=== PATIENT | female | born 1990 | race Caucasian/White ===

== ENCOUNTER 2017-09-30 10:31 | Emergency (ER) | payer OTHER ==
[~2017-09-30] VITALS: Ht 152.4 cm; Wt 87.5 kg
[~2017-09-30 10:31] MED LIST: ACYCLOVIR PO; ENOX40IN SQ; OXYC-57 PO; PANT40TA PO; PRENTAB26 PO
[2017-09-30 10:35] VITALS: TEMP 37; Ht 152.4 cm; Wt 87.5 kg
[2017-09-30] MEDS ORDERED: OXYCODONE HCL IR 5 MG TAB (IMMEDIATE RELEASE) PO STA (11:33)
[2017-09-30] MEDS ORDERED: IBUPROFEN 600 MG TAB PO STA (11:33)
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
--- NOTE | 2017-09-30 12:11 | DIAGNOSTIC IMAGING REPORT ---
C-SPINE ROUTINE 4 OR 5 VIEWS CLINICAL HISTORY: Neck pain status post trauma COMPARISON STUDY: No previous studies for comparison. FINDINGS: The prevertebral soft tissues are normal. No fractures or subluxations are visualized. IMPRESSION: No fractures or subluxations identified. Electronically signed by: Vaughn Hernandez M.D. 09/30/2017 12:10 PM Dictated Date/Time: 09/30/2017 12:10 PM
[2017-09-30] MEDS ORDERED: OXYC-57 PO (12:34)
[2017-09-30 12:50] VITALS: BP 141/83; PULSE 67; O2SAT 100
== END 2017-09-30 12:51 | disposition home or self-care (01) ==
LOC: C.EDB 10:34 → C.EDA 12:51
DX: M54.2 Cervicalgia (principal); V89.9XXA Person injured in unspecified vehicle accident, initial encounter; Z83.3 Family history of diabetes mellitus; Z80.9 Family history of malignant neoplasm, unspecified; Z82.49 Family history of ischemic heart disease and other diseases of the circulatory system; Z84.1 Family history of disorders of kidney and ureter

== ENCOUNTER 2019-07-10 18:31 | Observation (INO) ==
[2019-07-10] MEDS ORDERED: DEXAMETHASONE SOD INJ 4 MG/ML VIAL IV STA (22:26)
[2019-07-10] MEDS ORDERED: SODIUM CHLORIDE 0.9% 1000ML 1,000 ML IV ONE (22:26)
[2019-07-10] MEDS ORDERED: ACETAMINOPHEN 1,000 MG/100 ML VIAL IV STA (22:26)
[2019-07-10] MEDS ORDERED: PROCHLORPERAZINE 2 ML IV ONE (22:26)
[2019-07-10] MEDS ORDERED: DiphenhydrAMINE HCL 50 MG/ML VIAL IV STA (22:26)
--- NOTE | 2019-07-10 23:01 | XRay Report ---
SINGLE VIEW CHEST CLINICAL HISTORY: Atypical chest pain. FINDINGS: An AP, portable, upright chest radiograph is compared to study dated 04/08/2015. The cardiom ediastinal silhouette is unremarkable. The lungs and pleural spaces are clear. No pneumothorax is see n. The bony thorax is grossly intact. IMPRESSION: No active disease in the chest. Electronically signed by: Sebastian Oliveros M.D. 07/10/2019 11:00 PM
[2019-07-10 23:16] LABS: Eosinophils # (auto) 0.01 K/uL (0-0.5); Eosinophils % (auto) 0.1 %; Hematocrit (blood only) 45.4 % (37-47); Hemoglobin 15.7 g/dL (12.0-16.0); Immature Granulocytes # (auto) 0.01 K/uL (0.00-0.02); Immature Granulocytes % (auto) 0.1 %; Lymphocytes # (auto) 0.57 K/uL (1.2-3.4); Lymphocytes % (auto) 7.9 %; Mean Corpuscular Hemoglobin 29.8 pg (25-34); Mean Corpuscular Hgb Conc 34.6 g/dL (32-36); Mean Corpuscular Volume 86.1 fL (80-100); Mean Platelet Volume 10.5 fL (7.4-10.4); Monocytes # (auto) 0.46 K/uL (0.11-0.59); Monocytes % (auto) 6.4 %; Neutrophils # (auto) 6.12 K/uL (1.4-6.5); Neutrophils % (auto) 85.5 %; Platelet Count 135 K/uL (130-400); RDW Coefficient of Variation 12.8 % (11.5-14.5); RDW Standard Deviation 40.7 fL (36.4-46.3); Red Blood Count 5.27 M/uL (4.2-5.4); White Blood Count 7.17 K/uL (4.8-10.8)
[2019-07-10] MEDS ORDERED: DEXAMETHASONE **PF** INJ 10 MG/ML VIAL ONE (23:20)
[2019-07-10 23:26] LABS: Prothrombin Time 10.3 Seconds (9.0-12.0)
[2019-07-10 23:34] LABS: BUN Creatinine Ratio 15.9 (10-20); C Reactive Protein 1.99 mg/dl (0-0.29); Calcium 8.4 mg/dl (8.5-10.1); Creatinine Clr Calc Pharmacy 106.6 ml/min; Est GFR (African American) 112.9; Est GFR (Non-African American) 97.4; Magnesium 1.9 mg/dl (1.8-2.4); Potassium 3.6 mmol/L (3.5-5.1)
[2019-07-10 23:43] LABS: Albumin Globulin Ratio 1.1 (0.9-2); Bilirubin Direct 0.2 mg/dl (0-0.2); Bilirubin,Total 0.5 mg/dl (0.2-1); Globulin 3.5 gm/dl (2.5-4.0); Phosphorus 3.2 mg/dl (2.5-4.9); Thyroid Stimulating Hormone 3.2 uIu/ml (0.300-4.500); Total Protein 7.5 gm/dl (6.4-8.2)
[2019-07-10 23:48] LABS: Appearance Urine Clear (Clear); Bilirubin Urine Negative (Negative); Blood Urine Negative (Negative); Color Urine Yellow; Glucose Urine UA Negative (Negative); Ketones Urine 1+ (Negative); Leukocyte Esterase Urine Negative (Negative); Nitrite Urine Negative (Negative); Protein Urine Negative (Negative); Specific Gravity Urine 1.026 (1.000-1.030); Urobilinogen Urine Negative (Negative); pH Urine 5.5 (4.5-7.5)
[2019-07-10 23:51] LABS: RBC Morphology Unremarkable
[2019-07-11 00:02] LABS: Pregnancy Test, Serum Negative (Negative)
[2019-07-11 00:04] LABS: Lyme Ab IgG w/WB Rflx Negative (Negative); Lyme Ab IgM w/WB Rflx Negative (Negative)
[2019-07-11] MEDS ORDERED: LIDOCAINE HCL 1% 20 ML VIAL ONE (01:30)
--- NOTE | 2019-07-11 02:28 | Emergency Department Note ---
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 She has a hx of gestational diabetes, es ophagitis, DVT (in her left arm) during and is no longer on blood thinners. She reports her headache is constant and has gotten worse since the onset. She states she saw Dr. Subramanian, [facility] resident earlier today who referred her to the ED. She notes she did not take any of her medications today as she is extremely nauseous. She has vomiting and has double vision but denies any fevers, chills, cough, congestion, being on contraception. The patient also notes that her hair has been falling out and she has been bruising a lot lately. 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 She reports she was tested for Lyme's and West Nile but both were negative. Home Medications Home Medications Medication Instructions Recorded Confirmed Type pantoprazole 40 mg PO QAM 06/21/19 07/10/19 History valacyclovir 1,000 mg PO Q12H 06/21/19 07/10/19 History betamethasone dipropionate 1 applic TOPICAL BID 07/10/19 07/10/19 History cetirizine 10 mg PO DAILY PRN 07/10/19 07/10/19 History hydroxyzine HCl 25 mg PO BID PRN 07/10/19 07/10/19 History prednisone 40 mg PO DAILY 07/10/19 07/10/19 History Allergies Allergy/AdvReac Type Severity Reaction Status Date / Time clindamycin Allergy Intermediate Hives Verified 07/10/19 21:48 Past Med/Surg History Medical History History of DVT (deep vein thrombosis) in setting of PICC line Contact dermatitis H/O complications due to general anesthesia Herpes simplex Hidradenitis suppurativa Surgical History History of knee surgery History of surgery on wrist S/P section Status post laparoscopic appendectomy Family History Other Diabetes Hypertension Social History Preferred Language: Congolese Communication Ability: Effective 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 and A total of 10 systems reviewed and were otherwise negative Physical Exam Vital Signs Vital Signs - 24 hr 07/10/19 18:53 07/10/19 23:31 07/11/19 01:12 Temperature 37.1 C Temperature Source Oral Sepsis Recent Fever Within 48 Hours No Sepsis Action Taken by Nursing No Action Required Pulse Rate 83 Pulse Rate [Right Finger] 82 81 Pulse Rhythm Regular Pulse Rhythm [Right Finger] Regular Regular Pulse Strength Normal Pulse Strength [Right Finger] Normal Normal Respiratory Rate 20 20 20 Respiratory Effort / Characteristics Non-Labored Non-Labored Spontaneous Non-Labored Spontaneous Respiratory Depth Normal Normal Normal Respiratory Pattern Regular Blood Pressure 128/83 Blood Pressure [Right Arm] 131/71 123/67 Blood Pressure Mean 98 Blood Pressure Mean [Right Arm] 91 85 Blood Pressure Position Sitting Pulse Oximetry 99 98 95 Oxygen Delivery Method Room Air Room Air Room Air GENERAL: Awake, alert, uncomfortable-appearing, in no distress. BMI is 41.8 HENT: Normocephalic, atraumatic. Oropharynx with dry mucous membranes and other casanova unremarkable. EYES: Normal conjunctiva. Sclera non-icteric. EOMI. No nystamgus. PEARRL. NECK: Supple. No nuchal rigidity. FROM. No JVD. RESPIRATORY: CTAB. CARDIAC: Regular rate, normal rhythm. Extremities warm and well perfused. Pulses equal. ABDOMEN: Soft, non-distended. No tenderness to palpation. No rebound or guarding. No masses. RECTAL: Deferred. MUSCULOSKELETAL: Chest examination reveals no tenderness. The back is symmetrical on inspection without obvious abnormality. There is no CVA tenderness to palpation. No joint edema. LOWER EXTREMITIES: Calves are equal size bilaterally and non-tender. No edema. No discoloration. NEURO: Normal sensorium. No sensory or motor deficits noted. Cerebellar function intact, including finger to nose, alternating palms, heel to contreras. 5/5 strength and SILT x4 extremities. SKIN: No rash or jaundice noted. Procedures Lumbar Puncture Time Out Performed: Yes Patient Position: right lateral decubitus Skin Prep: 0.5% Chlorhexidine/Alcohol Local Anesthetic: lidocaine 1% Amount of anesthesia used (mL): 10 Spinal Needle Gauge: 22G Interspace Used: L4-L5 Opening Pressure (cmH20): 18 Fluid Initially Obtained: clear Complications: none Additional Comments: 8cc of clear fluid removed. Course 2215: Past medical records reviewed. The patient was evaluated in room B4. A complete history and physical exam was performed. 0033: Discussed the patient's case with Dr. Perez, [facility] Hospitalist. The pat ient will be evaluated for further management by her. Administered Medications Discontinued Medications Dexamethasone (Decadron) 10 mg IV NOW STA Stop: 07/10/19 22:27 Last Admin: 07/10/19 23:27 Dose: Not Given Documented by: [id number] Dexamethasone Sodium Phosphate (Decadron Pf) Confirm Administered Dose 10 mg .ROUTE .STK-MED ONE Stop: 07/10/19 23:21 Last Admin: 07/10/19 23:27 Dose: 10 mg Documented by: [id number] Diphenhydramine HCl (Benadryl) 25 mg IV NOW STA Stop: 07/10/19 22:27 Last Admin: 07/10/19 23:26 Dose: 25 mg Documented by: [id number] Acetaminophen (Ofirmev) 1,000 mg in 100 mls @ 400 mls/hr IV NOW STA Stop: 07/10/19 22:40 Last Infusion: 07/11/19 00:05 Dose: 0 mls/hr Documented by: [id number] Admin: 07/10/19 23:27 Dose: 400 mls/hr Documented by: [id number] Prochlorperazine (Compazine) 2 mls @ 1 mls/min IV ONE ONE Stop: 07/10/19 22:27 Last Admin: 07/10/19 23:27 Dose: 1 mls/min Documented by: [id number] Sodium Chloride (Nss 1000ml) 1,000 mls @ 999 mls/hr IV .Q1H1M ONE Stop: 07/10/19 23:26 Last Infusion: 07/11/19 02:18 Dose: 0 mls/hr Documented by: [id number] Admin: 07/10/19 23:27 Dose: 999 mls/hr Documented by: [id number] Lidocaine HCl (Xylocaine 1% (Local)) Confirm Administered Dose 20 ml .ROUTE .STK-MED ONE Stop: 07/11/19 01:31 Last Admin: 07/11/19 02:17 Dose: 20 ml Documented by: [id number] Ondansetron HCl (Zofran) Confirm Administered Dose 4 mg .ROUTE .STK-MED ONE Stop: 07/11/19 03:50 Last Admin: 07/11/19 03:52 Dose: 4 mg Documented by: [id number] Medical Decision Making Differential Diagnosis Differential diagnosis: Etiologies such as migraine headache, meningitis, sinusitis, CO exposure, ICH, SAH, infection, tumor, headache, sinus thrombosis, arterial dissection, as well as others were entertained. Medical Records Attestation: I reviewed the patient's medical records. She was seen by Dr. Cruz on 06/21 for a headache and pain on her right leg. She had a CT of her head and a follow up MRI. HEAD CT NONCONTRAST CT DOSE: 537.48 mGy.cm HISTORY: headache TECHNIQUE: Multiaxial CT images of the head were performed without the use of intravenous contrast. Automated exposure control was utilized for this study. A dose lowering technique was utilized adhering to the principles of ALARA. Comparison: None. Findings: The paranasal sinuses and mastoid air cells are clear. The calvarium and skull base are intact. There is no hematoma, midline shift, or acute infarct. Question of 8 mm subependymal nodule within the atrium of the left lateral ventricle best seen on image 16. There is CSF prominence posterior to the pineal gland measuring 2 cm which could represent an arachnoid or pineal gland cyst. There is also a small linear focus of CSF density within the left occipital lobe best seen image 14. This could represent a migration anomaly or small focus of encephalomalacia. This is likely developmental. Impression: 1. No acute intracranial abnormality. 2. Possible 8 mm subependymal nodule within the atrium of the left lateral ventricle. 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 3. Linear CSF density within the left occipital lobe which could represent a small focus of encephalomalacia from an old insult or migration anomaly. 4. Follow-up brain MRI recommended for further evaluation of the suspected congenital/developmental abnormalities. Electronically signed by: Tyler Grover M.D. 06/21/2019 2:24 PM ADDENDUM Addendum: Voice recognition error. Corrected impression #3: 3. There are NO lesions suspicious for neoplasm. Electronically signed by: Vaughn Hernandez M.D. 07/05/2019 2:56 PM ADDENDUM END MRI OF THE BRAIN WITHOUT AND WITH IV CONTRAST CLINICAL HISTORY: ACUTE INTRACTABLE [place] ABNORMAL CT SCAN. COMPARISON STUDY: Noncontrast head CT dated 06/21/2019 TECHNIQUE: MRI of the brain was performed from the vertex to the skull base utilizing various T1 and T2 weighted sequences. Following the IV administration of 9 mL of Gadavist contrast, additional enhanced images were obtained. FINDINGS: Sagittal T1, axial diffusion, proton density and T2 weighted axial, coronal FLAIR, and pre and post axial T1-weighted images were acquired. These were supplemented with post gadolinium coronal T1 weighted images. 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 In addition there is enlargement of the quadrigeminal plate cistern with a CSF cleft extending to the left medial temporal occipital region. Axial diffusion-weighted images reveal no evidence of acute or subacute infarction. There is no evidence of ventricular dilatation. Proton density T2-weighted and FLAIR images reveal scattered foci of increased T2 signal within the white matter, likely on a small vessel basis. There are no abnormal flow voids. There is no evidence of pathologic enhancement. IMPRESSION: 1. 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 2. No evidence of acute or subacute infarction 3. There are lesions suspicious for neoplasm. Electronically signed by: Vaughn Hernandez M.D. 07/03/2019 2:14 PM Home Medications Current Medication List: was personally reviewed by me Laboratory Data Attestation: I reviewed the patient's lab results. Result diagrams: 07/10/19 22:58 07/10/19 22:58 Lab Results 07/10/19 07/10/19 07/10/19 Range/Units 22:58 22:58 22:58 WBC 7.17 (4.8-10.8) K/uL RBC 5.27 (4.2-5.4) M/uL Hgb 15.7 (12.0-16.0) g/dL Hct 45.4 (37-47) % MCV 86.1 (80-100) fL MCH 29.8 (25-34) pg MCHC 34.6 (32-36) g/dL RDW Std Deviation 40.7 (36.4-46.3) fL RDW Coeff of Daniel 12.8 (11.5-14.5) % Plt Count 135 (130-400) K/uL MPV 10.5 H (7.4-10.4) fL Immature Gran % (Auto) 0.1 % Neut % (Auto) 85.5 % Lymph % (Auto) 7.9 % Titus % (Auto) 6.4 % Eos % (Auto) 0.1 % Baso % (Auto) 0.0 % Immature Gran # (Auto) 0.01 (0.00-0.02) K/uL Neut # (Auto) 6.12 (1.4-6.5) K/uL Lymph # (Auto) 0.57 L (1.2-3.4) K/uL Titus # (Auto) 0.46 (0.11-0.59) K/uL Eos # (Auto) 0.01 (0-0.5) K/uL Baso # (Auto) 0.00 (0-0.2) K/uL RBC Morphology Unremarkable ESR 14 (0-21) mm/hr PT (9.0-12.0) Seconds INR (0.9-1.1) Sodium (136-145) mmol/L Potassium (3.5-5.1) mmol/L Chloride (98-107) mmol/L Carbon Dioxide (21-32) mmol/L Anion Gap (3-11) BUN (7-18) mg/dl Creatinine (0.6-1.2) mg/dl Est Cr Clr Drug Dosing ml/min Est GFR ( Amer) Est GFR (Non-Af Amer) BUN/Creatinine Ratio (10-20) Glucose (70-99) mg/dl Calcium (8.5-10.1) mg/dl Phosphorus (2.5-4.9) mg/dl Magnesium (1.8-2.4) mg/dl Total Bilirubin (0.2-1) mg/dl Direct Bilirubin (0-0.2) mg/dl AST (15-37) U/L ALT (12-78) U/L Alkaline Phosphatase (45-117) U/L Total Creatine Kinase (26-192) U/L C-Reactive Protein (0-0.29) mg/dl Total Protein (6.4-8.2) gm/dl Albumin (3.4-5.0) gm/dl Globulin (2.5-4.0) gm/dl Albumin/Globulin Ratio (0.9-2) Lipase (73-393) U/L TSH (0.300-4.500) uIu/ml HCG, Qual Negative (Negative) Urine Color Urine Appearance (Clear) Urine pH (4.5-7.5) Ur Specific [place] (1.000-1.030) Urine Protein (Negative) Urine Glucose (UA) (Negative) Urine Ketones (Negative) Urine Blood (Negative) Urine Nitrite (Negative) Urine Bilirubin (Negative) Urine Urobilinogen (Negative) Ur Leukocyte Esterase (Negative) Lyme Disease IgG Ab Negative (Negative) Lyme Disease IgM Ab Negative (Negative) 07/10/19 07/10/19 07/10/19 Range/Units 22:58 22:58 23:35 WBC (4.8-10.8) K/uL RBC (4.2-5.4) M/uL Hgb (12.0-16.0) g/dL Hct (37-47) % MCV (80-100) fL MCH (25-34) pg MCHC (32-36) g/dL RDW Std Deviation (36.4-46.3) fL RDW Coeff of Daniel (11.5-14.5) % Plt Count (130-400) K/uL MPV (7.4-10.4) fL Immature Gran % (Auto) % Neut % (Auto) % Lymph % (Auto) % Titus % (Auto) % Eos % (Auto) % Baso % (Auto) % Immature Gran # (Auto) (0.00-0.02) K/uL Neut # (Auto) (1.4-6.5) K/uL Lymph # (Auto) (1.2-3.4) K/uL Titus # (Auto) (0.11-0.59) K/uL Eos # (Auto) (0-0.5) K/uL Baso # (Auto) (0-0.2) K/uL RBC Morphology ESR (0-21) mm/hr PT 10.3 (9.0-12.0) Seconds INR 1.0 (0.9-1.1) Sodium 136 (136-145) mmol/L Potassium 3.6 (3.5-5.1) mmol/L Chloride 105 (98-107) mmol/L Carbon Dioxide 24 (21-32) mmol/L Anion Gap 7.0 (3-11) BUN 13 (7-18) mg/dl Creatinine 0.82 (0.6-1.2) mg/dl Est Cr Clr Drug Dosing 106.6 ml/min Est GFR ( Amer) 112.9 Est GFR (Non-Af Amer) 97.4 BUN/Creatinine Ratio 15.9 (10-20) Glucose 87 (70-99) mg/dl Calcium 8.4 L (8.5-10.1) mg/dl Phosphorus 3.2 (2.5-4.9) mg/dl Magnesium 1.9 (1.8-2.4) mg/dl Total Bilirubin 0.5 (0.2-1) mg/dl Direct Bilirubin 0.2 (0-0.2) mg/dl AST 24 (15-37) U/L ALT 30 (12-78) U/L Alkaline Phosphatase 76 (45-117) U/L Total Creatine Kinase 58 (26-192) U/L C-Reactive Protein 1.99 H (0-0.29) mg/dl Total Protein 7.5 (6.4-8.2) gm/dl Albumin 4.0 (3.4-5.0) gm/dl Globulin 3.5 (2.5-4.0) gm/dl Albumin/Globulin Ratio 1.1 (0.9-2) Lipase 160 (73-393) U/L TSH 3.200 (0.300-4.500) uIu/ml HCG, Qual (Negative) Urine Color Yellow Urine Appearance Clear (Clear) Urine pH 5.5 (4.5-7.5) Ur Specific [place] 1.026 (1.000-1.030) Urine Protein Negative (Negative) Urine Glucose (UA) Negative (Negative) Urine Ketones 1+ H (Negative) Urine Blood Negative (Negative) Urine Nitrite Negative (Negative) Urine Bilirubin Negative (Negative) Urine Urobilinogen Negative (Negative) Ur Leukocyte Esterase Negative (Negative) Lyme Disease IgG Ab (Negative) Lyme Disease IgM Ab (Negative) Imaging Data Radiologist's Impression: Radiology results as stated below per my review and the radiologist's interpretation: SINGLE VIEW CHEST CLINICAL HISTORY: Atypical chest pain. FINDINGS: An AP, portable, upright chest radiograph is compared to study dated 04/08/2015. The cardiomediastinal silhouette is unremarkable. The lungs and ple ural spaces are clear. No pneumothorax is seen. The bony thorax is grossly intact. IMPRESSION: No active disease in the chest. Electronically signed by: Sebastian Oliveros M.D. 07/10/2019 11:00 PM ECG Data Attestation: I personally reviewed and interpreted this ECG as follows: Indication: vomiting Rate (beats per minute): 76 Rhythm: normal sinus Findings: + other (normal axis, QTC is 418); no acute ischemic change and no ectopy Blood Pressure Blood Pressure Findings: Elevated blood pressure Blood Pressure Disposition: further management by hospitalist OSVALDO Narrative The patient is a pleasant 20-year-old woman with a past medical history of DVT in the setting of no longer on anticoagulation who presents emergency department for admission for further evaluation and neurology consultation for 2 months of progressively worsening headache being managed by her PCPs office HPI. The patient did have a recent positive SHANTA and so there is some suspicion for rheumatologic process. Patient has been on prednisone for her symptoms. Of note, the patient had a CT scan in the emergency department which demonstrated likely congenital gyral thickening which was further clarified on recent outpatient MRI with and without contrast without acute findings otherwise. Arrival the patient is uncomfortable but no acute distress, afebrile stable vital signs. Her neck is supple with full range of motion without meningismus. No discrete temporal ttp. She is neurologically intact including cerebellar function intact including [id number], alternating palms, [id number]. 5/5 strength and SILT x 4 extremities. EOMI. No nystamgus. PEARRL. EKG without overt acute ischemia. Chest x-ray negative for acute process. WBC, H/H and platelets within normal limits. Chemistry without acidosis. ESR within normal limits at 14. CRP slightly elevated at 1.9. Electrolytes and LFTs otherwise unremarkable. UA with 1+ ketones consistent with the patient's clinically dry appearance. Lyme screen was negative. Given the patient recent had MRI of her brain no indication for repeat imaging at this time. However given the patient's consolation of symptoms lumbar puncture is reasonable to exclude idiopathic intracranial hypertension. Patient was consented and agreeable with this. LP performed per procedure note without complication with unremarkable cell counts. Viral studies ordered and pending. Case was discussed with Dr. Perez, [facility] hospitalist, who will evaluate the patient for admission. Impression & Plan Headache, Nausea, Change in vision, Dehydration, CRP elevated Discharge Plan Visit Data *Final* Discharge Date/Time: 07/11/19 03:20 Chief Complaint: Headache Stated Complaint: HEADACHE, REF'D BY BAROSEL ED Provider: Ihsan Long Discharge Problem: Headache, Nausea, Change in vision, Dehydration, CRP elevated Patient Disposition: Admitted As Inpatient Discharge Instructions Interventions: ED Discharge Assessment Last Done: 07/11/19 03:20 The scribe's documentation has been prepared under my direction and personally reviewed by me in its entirety. I confirm that the note above accurately reflects all work, treatment, procedures, and medical decision making performed by me.
[2019-07-11 02:41] LABS: CSF Count Tube # 3
--- NOTE | 2019-07-11 02:42 | History & Physical Report ---
Date of Service July 11, 2019 Assessment & Plan (1) Headache: Patient with new onset daily headache present for the last two months, associated with some visual changes/nausea/vomiting/photo and phonophobia. No fevers/chills/trauma/weight loss. Neurologically intact. LP performed in ER with subsequent improvement in symptoms. ?migraine vs psuedotumor cerebrii vs CVT. -Observation to medical floor -Check MRI, MRV -Neurology consultation appreciated. Per request from PCP -Pain and nausea control Present on Admission?: Yes History of Present Illness Chief Complaint: Headache Primary Care Provider: Hector Mendoza MD Cortney White is a 28yo C female presenting with headache. Patient reports no prior history of headache until 2 months ago when she developed a daily headache. Headache has been present every day for the last two months, constant, lasting all day. Occasionally wakes her from sleep. Pain is 10/10 at its worst, bifrontal, pounding/aching in quality. She has used Tylenol/Advil/Heat and ice with no relief. She has associated photophobia and phonophobia, occasional blurry vision and double vision and flashing lights in her visual field. Dizziness, nausea and vomiting. She reports that the headache has become progressively worse over the last two months. She has also been having more nausea and vomiting. Patient follows with Dr. Mendoza and Dr. Perez in the clinic. She has a complicated history of alopecia, skin rashes which have since resolved, leg swelling. Also with positive SHANTA on two separate occasions - 1:640 speckled and 1:640 nuclear. Additional workup included negative HIV, CMV and RPR. She was thought to possibly have lupus with cerebr itis as etiology of her headaches. She was started on Prednisone 40mg po daily. She reports worsening symptoms with taking the Prednisone. She denies history of trauma or concussion. 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 Denies fevers/chills. Headache is not made worse by straining or bending down. No seizures. No focal neurologic deficits. No recent illness or sick contacts. No history of tick or mosquito bites. She was experiencing episodes of epistaxis - was evaluated by ENT today and found to have nasal polyps. She is being scheduled for elective removal. Additionally, patient denies chest pain/palpitations/SOB/constipation/dysuria. Upon arrival to the ER this evening she was found to be afebrile, hemodynamically stable. In mild distress secondary to pain. She was administered Tylenol, Dexamethasone, Benadryl, Phenergan and NSS. LP was performed by Dr. Long with patient in the lateral recumbent position. He reported normal opening pressure, spinal fluid clear. Patient with no additional complaints at this time. She states that her headache is gone since the spinal tap. ER Course: Ofirme 1gm, Dexamethasone 10mg, Benadryl 25mg, Phenergan, NSS Allergies Allergy/AdvReac Type Severity Reaction Status Date / Time clindamycin Allergy Intermediate Hives Verified 07/10/19 21:48 Home Medications Home Medications Medication Instructions Recorded Confirmed Type pantoprazole 40 mg PO QAM 06/21/19 07/10/19 History valacyclovir 1,000 mg PO Q12H 06/21/19 07/10/19 History betamethasone dipropionate 1 applic TOPICAL BID 07/10/19 07/10/19 History cetirizine 10 mg PO DAILY PRN 07/10/19 07/10/19 History hydroxyzine HCl 25 mg PO BID PRN 07/10/19 07/10/19 History prednisone 40 mg PO DAILY 07/10/19 07/10/19 History Past Med/Surg History Medical History History of DVT (deep vein thrombosis) in setting of PICC line Contact dermatitis H/O complications due to general anesthesia Herpes simplex Hidradenitis suppurativa Surgical History History of knee surgery History of surgery on wrist S/P section Status post laparoscopic appendectomy Family History Other Diabetes Hypertension Social History Preferred Language: Occitan Feels Safe at Home: Yes Smoking Status: Never smoker Hx Alcohol Use: No Hx Substance Use: No Review of Systems Review of Systems: All systems reviewed & are unremarkable except as noted in HPI & below Physical Exam Physical Exam: General: patient resting comfortably, NAD, non-toxic in appearance, AA&O x 4 Skin: warm, dry, intact, no rashes or lesions HEENT: NC/AT, PERRL, EOMI, anicteric sclera, conjunctiva without injection, external ear normal to inspection and nontender, nares patent, moist mucus m embranes, dentition intact, no oropharyngeal lesions, neck supple, trachea midline, no LAD, no thyromegaly, no JVD Heart: +S1/S2, regular, no m/r/g Lungs: equal air entry bilaterally, no rales/rhonchi/wheezes Abd: +BS, soft, NT/ND, no masses/organomegaly/ascites Ext: warm, 2+ pulses in UE/LE bilaterally, no clubbing/cyanosis or edema Neuro: nonfocal, patient AA&O x 4, speech intact, no facial droop, moving all extremities on command with equal strength 5/5 Results & Data Vital Signs (Past 12 Hours) Vital Signs Temp Pulse Pulse Resp BP BP Pulse Ox 07/11/19 01:12 81 20 123/67 95 07/10/19 23:31 82 20 131/71 98 07/10/19 18:53 37.1 C 83 20 128/83 99 Laboratory Results Lab Results 07/10/19 07/10/19 07/10/19 Range/Units 22:58 22:58 22:58 WBC 7.17 (4.8-10.8) K/uL RBC 5.27 (4.2-5.4) M/uL Hgb 15.7 (12.0-16.0) g/dL Hct 45.4 (37-47) % MCV 86.1 (80-100) fL MCH 29.8 (25-34) pg MCHC 34.6 (32-36) g/dL RDW Std Deviation 40.7 (36.4-46.3) fL RDW Coeff of Daniel 12.8 (11.5-14.5) % Plt Count 135 (130-400) K/uL MPV 10.5 H (7.4-10.4) fL Immature Gran % (Auto) 0.1 % Neut % (Auto) 85.5 % Lymph % (Auto) 7.9 % [place] % (Auto) 6.4 % Eos % (Auto) 0.1 % Baso % (Auto) 0.0 % Immature Gran # (Auto) 0.01 (0.00-0.02) K/uL Neut # (Auto) 6.12 (1.4-6.5) K/uL Lymph # (Auto) 0.57 L (1.2-3.4) K/uL [place] # (Auto) 0.46 (0.11-0.59) K/uL Eos # (Auto) 0.01 (0-0.5) K/uL Baso # (Auto) 0.00 (0-0.2) K/uL RBC Morphology Unremarkable ESR 14 (0-21) mm/hr PT (9.0-12.0) Seconds INR (0.9-1.1) Sodium (136-145) mmol/L Potassium (3.5-5.1) mmol/L Chloride (98-107) mmol/L Carbon Dioxide (21-32) mmol/L Anion Gap (3-11) BUN (7-18) mg/dl Creatinine (0.6-1.2) mg/dl Est Cr Clr Drug Dosing ml/min Est GFR ( Amer) Est GFR (Non-Af Amer) BUN/Creatinine Ratio (10-20) Glucose (70-99) mg/dl Calcium (8.5-10.1) mg/dl Phosphorus (2.5-4.9) mg/dl Magnesium (1.8-2.4) mg/dl Total Bilirubin (0.2-1) mg/dl Direct Bilirubin (0-0.2) mg/dl AST (15-37) U/L ALT (12-78) U/L Alkaline Phosphatase (45-117) U/L Total Creatine Kinase (26-192) U/L C-Reactive Protein (0-0.29) mg/dl Total Protein (6.4-8.2) gm/dl Albumin (3.4-5.0) gm/dl Globulin (2.5-4.0) gm/dl Albumin/Globulin Ratio (0.9-2) Lipase (73-393) U/L TSH (0.300-4.500) uIu/ml HCG, Qual Negative (Negative) Urine Color Urine Appearance (Clear) Urine pH (4.5-7.5) Ur Specific [place] (1.000-1.030) Urine Protein (Negative) Urine Glucose (UA) (Negative) Urine Ketones (Negative) Urine Blood (Negative) Urine Nitrite (Negative) Urine Bilirubin (Negative) Urine Urobilinogen (Negative) Ur Leukocyte Esterase (Negative) CSF Appearance CSF Color Xanthrochromic CSF WBC (0-5) /uL CSF RBC (0-) /uL CSF Cell Count Tube # CSF Chemistry Tube # CSF Glucose (40-70) mg/dl CSF Total Protein (15-45) mg/dl Lyme Disease IgG Ab Negative (Negative) Lyme Disease IgM Ab Negative (Negative) 07/10/19 07/10/19 07/10/19 Range/Units 22:58 22:58 23:35 WBC (4.8-10.8) K/uL RBC (4.2-5.4) M/uL Hgb (12.0-16.0) g/dL Hct (37-47) % MCV (80-100) fL MCH (25-34) pg MCHC (32-36) g/dL RDW Std Deviation (36.4-46.3) fL RDW Coeff of Daniel (11.5-14.5) % Plt Count (130-400) K/uL MPV (7.4-10.4) fL Immature Gran % (Auto) % Neut % (Auto) % Lymph % (Auto) % [place] % (Auto) % Eos % (Auto) % Baso % (Auto) % Immature Gran # (Auto) (0.00-0.02) K/uL Neut # (Auto) (1.4-6.5) K/uL Lymph # (Auto) (1.2-3.4) K/uL [place] # (Auto) (0.11-0.59) K/uL Eos # (Auto) (0-0.5) K/uL Baso # (Auto) (0-0.2) K/uL RBC Morphology ESR (0-21) mm/hr PT 10.3 (9.0-12.0) Seconds INR 1.0 (0.9-1.1) Sodium 136 (136-145) mmol/L Potassium 3.6 (3.5-5.1) mmol/L Chloride 105 (98-107) mmol/L Carbon Dioxide 24 (21-32) mmol/L Anion Gap 7.0 (3-11) BUN 13 (7-18) mg/dl Creatinine 0.82 (0.6-1.2) mg/dl Est Cr Clr Drug Dosing 106.6 ml/min Est GFR ( Amer) 112.9 Est GFR (Non-Af Amer) 97.4 BUN/Creatinine Ratio 15.9 (10-20) Glucose 87 (70-99) mg/dl Calcium 8.4 L (8.5-10.1) mg/dl Phosphorus 3.2 (2.5-4.9) mg/dl Magnesium 1.9 (1.8-2.4) mg/dl Total Bilirubin 0.5 (0.2-1) mg/dl Direct Bilirubin 0.2 (0-0.2) mg/dl AST 24 (15-37) U/L ALT 30 (12-78) U/L Alkaline Phosphatase 76 (45-117) U/L Total Creatine Kinase 58 (26-192) U/L C-Reactive Protein 1.99 H (0-0.29) mg/dl Total Protein 7.5 (6.4-8.2) gm/dl Albumin 4.0 (3.4-5.0) gm/dl Globulin 3.5 (2.5-4.0) gm/dl Albumin/Globulin Ratio 1.1 (0.9-2) Lipase 160 (73-393) U/L TSH 3.200 (0.300-4.500) uIu/ml HCG, Qual (Negative) Urine Color Yellow Urine Appearance Clear (Clear) Urine pH 5.5 (4.5-7.5) Ur Specific [place] 1.026 (1.000-1.030) Urine Protein Negative (Negative) Urine Glucose (UA) Negative (Negative) Urine Ketones 1+ H (Negative) Urine Blood Negative (Negative) Urine Nitrite Negative (Negative) Urine Bilirubin Negative (Negative) Urine Urobilinogen Negative (Negative) Ur Leukocyte Esterase Negative (Negative) CSF Appearance CSF Color Xanthrochromic CSF WBC (0-5) /uL CSF RBC (0-) /uL CSF Cell Count Tube # CSF Chemistry Tube # CSF Glucose (40-70) mg/dl CSF Total Protein (15-45) mg/dl Lyme Disease IgG Ab (Negative) Lyme Disease IgM Ab (Negative) 07/11/19 07/11/19 Range/Units Unknown Unknown WBC (4.8-10.8) K/uL RBC (4.2-5.4) M/uL Hgb (12.0-16.0) g/dL Hct (37-47) % MCV (80-100) fL MCH (25-34) pg MCHC (32-36) g/dL RDW Std Deviation (36.4-46.3) fL RDW Coeff of Daniel (11.5-14.5) % Plt Count (130-400) K/uL MPV (7.4-10.4) fL Immature Gran % (Auto) % Neut % (Auto) % Lymph % (Auto) % [place] % (Auto) % Eos % (Auto) % Baso % (Auto) % Immature Gran # (Auto) (0.00-0.02) K/uL Neut # (Auto) (1.4-6.5) K/uL Lymph # (Auto) (1.2-3.4) K/uL [place] # (Auto) (0.11-0.59) K/uL Eos # (Auto) (0-0.5) K/uL Baso # (Auto) (0-0.2) K/uL RBC Morphology ESR (0-21) mm/hr PT (9.0-12.0) Seconds INR (0.9-1.1) Sodium (136-145) mmol/L Potassium (3.5-5.1) mmol/L Chloride (98-107) mmol/L Carbon Dioxide (21-32) mmol/L Anion Gap (3-11) BUN (7-18) mg/dl Creatinine (0.6-1.2) mg/dl Est Cr Clr Drug Dosing ml/min Est GFR ( Amer) Est GFR (Non-Af Amer) BUN/Creatinine Ratio (10-20) Glucose (70-99) mg/dl Calcium (8.5-10.1) mg/dl Phosphorus (2.5-4.9) mg/dl Magnesium (1.8-2.4) mg/dl Total Bilirubin (0.2-1) mg/dl Direct Bilirubin (0-0.2) mg/dl AST (15-37) U/L ALT (12-78) U/L Alkaline Phosphatase (45-117) U/L Total Creatine Kinase (26-192) U/L C-Reactive Protein (0-0.29) mg/dl Total Protein (6.4-8.2) gm/dl Albumin (3.4-5.0) gm/dl Globulin (2.5-4.0) gm/dl Albumin/Globulin Ratio (0.9-2) Lipase (73-393) U/L TSH (0.300-4.500) uIu/ml HCG, Qual (Negative) Urine Color Urine Appearance (Clear) Urine pH (4.5-7.5) Ur Specific [place] (1.000-1.030) Urine Protein (Negative) Urine Glucose (UA) (Negative) Urine Ketones (Negative) Urine Blood (Negative) Urine Nitrite (Negative) Urine Bilirubin (Negative) Urine Urobilinogen (Negative) Ur Leukocyte Esterase (Negative) CSF Appearance Clear CSF Color Colorless Xanthrochromic No xanthochromia CSF WBC 1 (0-5) /uL CSF RBC 0 (0-) /uL CSF Cell Count Tube # 3 CSF Chemistry Tube # 1 CSF Glucose 54 (40-70) mg/dl CSF Total Protein 36.6 (15-45) mg/dl Lyme Disease IgG Ab (Negative) Lyme Disease IgM Ab (Negative) Diagnostic Findings SINGLE VIEW CHEST CLINICAL HISTORY: Atypical chest pain. FINDINGS: An AP, portable, upright chest radiograph is compared to study dated 04/08/2015. The cardiomediastinal silhouette is unremarkable. The lungs and pleural spaces are clear. No pneumothorax is seen. The bony thorax is grossly intact. IMPRESSION: No active disease in the chest. Electronically signed by: Sebastian Oliveros M.D. 07/10/2019 11:00 PM Dictated: 07/10/192299 Transcribed: 07/10/192299 ECG Additional Comments: The study shows NSR at 76bpm, normal axis, FY=661, QRS=88, PLv=203, no acute ischemic changes Code Status & VTE Plan Code Status FULL VTE Prophylaxis Plan VTE Prophylaxis will be ordered: Yes PG Care Time/CCT Total # of Minutes Spent Total Time Spent with Patient: Total time spent is greater than 50% in coordination of care (as documented) at patient's floor/unit and/or counseling patient: (1) Headache Headache chronicity pattern: acute headache Headache type: unspecified Intractability: not intractable Qualified Code(s): R51 - Headache
[2019-07-11 02:49] LABS: Appearance CSF Clear; CSF Xanthrochromic No xanthochromia; Color CSF Colorless; Red Blood Cell CSF (A) 0 /uL (0-)
[2019-07-11 02:50] LABS: White Blood Cell CSF (A) 1 /uL (0-5)
[2019-07-11 02:51] LABS: Total Protein CSF 36.6 mg/dl (15-45)
[2019-07-11] MEDS ORDERED: CETIRIZINE HCL 10 MG TABLET PO PRN (03:35)
[2019-07-11] MEDS ORDERED: ONDANSETRON INJ 2 MG/ML 2 ML VIAL ONE (03:49)
--- NOTE | 2019-07-11 07:29 | Magnetic Resonance Report ---
MR venography head wo con CLINICAL HISTORY: Severe headache. COMPARISON STUDY: Head CT June 21, 2019. MRI of the brain July 03, 2019. TECHNIQUE: Utilizing a 1.5 Marisol magnet and dedicated coil with [id number] technique, unenhanced MRV of the head was obtained. FINDINGS: The superior sagittal sinus is patent. The straight sinus is patent. The bilateral transver se and sigmoid sinuses are patent. Visualized portions of the bilateral internal jugular veins are pa tent. No dural sinus thrombosis is identified. IMPRESSION: Unremarkable MRV. No dural sinus thrombosis. Electronically signed by: Nikko Alvarado M.D. 07/11/2019 7:28 AM
[2019-07-11] MEDS: VALACYCLOVIR HCL 500 MG TABLET PO SCH ×2 (08:55→20:02)
[2019-07-11] MEDS: PANTOprazole 40 MG TAB PO SCH (08:55)
[2019-07-11] MEDS: BETAMETHASONE DIP AUG 0.05% OINT 15 GM TUBE TOP SCH ×2 (08:56→20:01)
--- NOTE | 2019-07-11 10:11 | Neurology Consultation ---
Date of Consultation July 11, 2019 Assessment & Plan (1) Chronic migraine: This patient probably has a chronic migraine. She has an intact neurological examination and has had an unrevealing assessment including neuro imaging and lumbar puncture. She does have some incidental congenital /migrational defects on MRI that would not explain her persistent migrainous headache over the past 2 months. Her lumbar puncture revealed a normal opening pressure and was negative for any evidence of hemorrhage or infection. There is no supportive evidence of pseudotumor cerebri, subarachnoid hemorrhage, meningitis, or cerebral venous thrombosis. Lupus cerebritis is probably unlikely as well given her benign-appearing CSF and lack of focal enhancement on MRI. At this point I would suggest treatment per status migrainosus. Would consider giving additional IV corticosteroids such as methylprednisolone 500 mg IV x1. Would also give Depakote 500 mg IV x1. May continue with Zofran and Vistaril on an as-needed basis. However, would also consider giving additional Compazine IV if necessary to further address headache and nausea. Would also consider using sumatriptan and 6 mg subcutaneous injection for acute migraine treatment. I would also recommend starting topiramate 25 mg twice daily for migraine prevention. An outpatient rheumatology assessment has also been arranged for this patient which I think is reasonable in light of her history of elevated SHANTA and unexplained intermittent, migratory rash. History of Present Illness Reason for Consultation: headache Requesting Physician: Sudha Perez DO Attending Physician: Sudha Perez DO History of Present Illness The patient is a 28-year-old female with a chief complaint of headache. She complains of a fairly persistent headache that is been present for the past 2 months. Light and sounds tend to trigger her headache. She complains of some associated nausea, vomiting, and blurry vision. She has been using [id number] analgesics without relief. She denies a history of migraine. 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 She was given a prescription for prednisone recently by her PCP to potentially treat her refractory headaches. Past medical history also notable for a positive SHANTA with a high titer and an intermittent migratory erythematous papular rash affecting the limbs and trunk. She does not have a specific rheumatological diagnosis although has an appointment with a elevator constructor hydraulic at [facility] this coming November. 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 No evidence for an acute process. The patient appears to be clinically well although she complains of a persistent headache. She denies any associated weakness, difficulty with walking, or problems with coordination of the limbs. Patient denies a history of epilepsy or seizure disorder. Allergies Allergy/AdvReac Type Severity Reaction Status Date / Time clindamycin Allergy Intermediate Hives Verified 07/10/19 21:48 Home Medications Home Medications Medication Instructions Recorded Confirmed Type pantoprazole 40 mg PO QAM 06/21/19 07/10/19 History valacyclovir 1,000 mg PO Q12H 06/21/19 07/10/19 History betamethasone dipropionate 1 applic TOPICAL BID 07/10/19 07/10/19 History cetirizine 10 mg PO DAILY PRN 07/10/19 07/10/19 History hydroxyzine HCl 25 mg PO BID PRN 07/10/19 07/10/19 History prednisone 40 mg PO DAILY 07/10/19 07/10/19 History Patient History Medical History History of DVT (deep vein thrombosis) in setting of PICC line Contact dermatitis H/O complications due to general anesthesia Herpes simplex Hidradenitis suppurativa Surgical History History of knee surgery History of surgery on wrist S/P section Status post laparoscopic appendectomy Family History Other Diabetes Hypertension Social History Preferred Language: Maori Communication Ability: Effective Molecular Biology Professor Required: No Beliefs That Will Affect Care: None Current Living Situation: Spouse and Family Feels Safe at Home: Yes Smoking Status: Never smoker Second Hand Exposure: No ; Hx Alcohol Use: No Hx Substance Use: No Review of Systems Constitutional: no fever and no chills Eyes: as per Subjective / HPI, + photophobia and + seeing flashes; no blind spots and no eye pain Ear, Nose, Mouth, Throat: no ear pain, no tinnitus and no hearing loss Respiratory: no cough and no dyspnea Cardiovascular: no chest pain and no palpitations Gastrointestinal: as per Subjective / HPI, + nausea and + vomiting Genitourinary: no urinary incontinence Musculoskeletal: no neck pain and no myalgia Integumentary: as per Subjective / HPI and + alopecia Intermittent erythematous papular rash. None at this time, however. Neurologic: + headache(s); no unsteadiness, no localized weakness, no genera lized weakness, no loss of sensation, no tremor(s), no seizure-like activity, no syncope, no abnormal speech, no confusion and no memory loss Psychiatric: no depression and no anxiety Hematologic / Lymphatic: no easy bleeding and no easy bruising Physical Exam Physical Exam: The patient is a well-developed, well-nourished adult female. She is alert and fully oriented. Recent and remote memory intact. Patient is attentive with normal concentration. Patient exhibits a normal spontaneous speech pattern as well as an age-appropriate fund of knowledge and normal comp attention of vocabulary. Visual appiah full to confrontation. Visual acuity normal. Pupils equal round reactive to light and accommodation. Eye movements normal. There is no nystagmus, ptosis, or ophthalmoplegia. Facial sensation intact. There is no facial droop or weakness. Hearing intact. Palate elevates to midline. Shoulder shrug intact. Tongue protrudes to midline. Sensation intact to all modalities in all 4 limbs. Deep tendon reflexes intact and symmetrical for the arms and legs. Plantar responses downgoing bilaterally. There is no dysdiadochokinesia or dysmetria [id number] or [id number] bilaterally. Ophthalmoscopic examination reveals normal-appearing optic disks and posterior segments. No papilledema or hemorrhages. Carotid pulses normal bilaterally, no bruits to auscultation. Gait and station normal. Patient exhibits normal muscle strength and tone for all 4 limbs. No atrophy. No abnormal movements observed. Results & Data Vital Signs (Past 12 Hours) Vital Signs Temp Pulse Resp BP Pulse Ox 07/11/19 07:20 37.1 C 72 18 108/75 97 07/11/19 03:34 36.9 C 86 16 117/74 96 07/11/19 03:09 78 20 105/57 L 97 07/11/19 01:12 81 20 123/67 95 07/10/19 23:31 82 20 131/71 98 Laboratory Results WBC 7.17, hemoglobin 15.7, hematocrit 45.4, platelet count 135, sedimentation rate 14, sodium 136, potassium 3.6, BUN 13, creatinine 0.82, glucose 87, calcium 8.4, magnesium 1.9, AST 24, ALT 30, total CK 58, CRP 1.99, TSH 3.200 CSF clear, colorless, no xanthochromia, WBC 1, RBC 0, glucose 54, protein 36.6, Gram stain no WBCs, no organisms opening pressure 18 cm H2O Diagnostic Findings A CT of the head obtained on June 21, 2019 was negative for hemorrhage or acute process. 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 A follow-up MRI was recommended given the likely possibility of congenital/developmental abnormalities. I reviewed the images as well as the radiologist interpretation of this test. A contrast-enhanced brain MRI completed July 03, 2019 was negative for acute or subacute process. 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 There is enlargement of the quadrigeminal cistern with the CSF cleft extending into the medial temporal occipital region. There is no abnormal postcontrast e nhancement. I reviewed the images as well as the radiologist interpretation of this test. An MRV of the head is unremarkable. No dural sinus thrombosis.
[2019-07-11] MEDS: ONDANSETRON INJ 2 MG/ML 2 ML VIAL IV PRN ×2 (11:10→18:35)
[2019-07-11] MEDS: ACETAMINOPHEN 325 MG TAB PO PRN ×2 (13:28→20:02)
--- NOTE | 2019-07-11 20:02 | Hospitalist Progress Note ---
Date of Service July 11, 2019 Assessment & Plan (1) Headache: Status migrainosus: Appreciate neurology recommendations. Patient likely has a chronic migraine. Neurological exam normal. She does have some incidental congenital/migrational defects on MRI that would not explain her persistent migrainous headache over the past 2 months. Lumbar puncture revealed a normal opening pressure and was negative for any evidence of hemorrhage or infection. There is no evidence of pseudotumor cerebri, subarachnoid hemorrhage, meningitis, or cerebral venous thrombosis. 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 Given IV corticosteroids such as methylprednisolone 500 mg IV x1. Given Depakote 500 mg IV x1. Continue Zofran and Vistaril on an as-needed basis. Continue Compazine IV if necessary to further address headache and nausea. Continue sumatriptan and 6 mg subcutaneous injection for acute migraine treatment. Start topiramate 25 mg twice daily for migraine prevention Subjective Patient seen and examined at the bedside. No acute events overnight. Slowly improving. She said she feels that her chronic migraine headache is still not under control. Appreciate neurology recommendations. Patient denies fever chills, chest pain, shortness of breath, frequency, urgency, hematuria, dysuria. Review of Systems Review of Systems: All systems reviewed & are unremarkable except as noted in HPI & below Physical Exam Constitutional: WD/WN, vitals as above well developed Eyes: PERRL, conjunctivae normal, anicteric sclerae ENMT: external ear and nose normal, oropharynx normal Neck: trachea midline, no thyromegaly Respiratory: normal respiratory effort, lungs clear to auscultation Cardiovascular: RRR, no murmur, no edema Gastrointestinal (Abdomen): normal bowel sounds, soft, nontender, no hepatosplenomegaly Musculoskeletal: no cyanosis or clubbing, extremities motor strength 5/5 Skin: no rashes, warm and dry Neurologic: patellar DTR's 2+ bilat, sensation intact Genitourinary: no vaginal lesions, no adnexal mass Lymphatic: no cervical or axillary lymphadenopathy Results & Data Vital Signs (Past 12 Hours) Vital Signs Temp Pulse Resp BP Pulse Ox 07/11/19 15:32 36.9 C 70 16 109/71 97 PG Care Time/CCT Total # of Minutes Spent Total Time Spent with Patient: Total time spent is greater than 50% in coordination of care (as documented) at patient's floor/unit and/or counseling patient: (1) Headache Headache chronicity pattern: acute headache Headache type: unspecified Intractability: not intractable Qualified Code(s): R51 - Headache
[2019-07-11] MEDS ORDERED: PROCHLORPERAZINE 5 MG in SYRINGE 4 ML IV PRN (20:14)
[2019-07-11] MEDS ORDERED: methylPREDNISolone 125 MG/2 ML VIAL IV STA (20:14)
[2019-07-11] MEDS ORDERED: DIVALPROEX DELAY RELEASE 500 MG TAB PO ONE (20:14)
[2019-07-11] MEDS ORDERED: VALPROATE SOD 500 MG in DEXTROSE 5% 50 ML IV ONE (20:30)
[2019-07-11] MEDS ORDERED: methylPREDNISolone 250 MG in DEXTROSE 5% 100 ML IV ONE (20:45)
[2019-07-11] MEDS: SODIUM CHLORIDE 0.9% 1000ML 1,000 ML IV SCH (21:06)
[2019-07-11] MEDS: TOPIRAMATE 25 MG TAB PO SCH (21:06)
[2019-07-12 05:53] LABS: Hematocrit (blood only) 40.3 % (37-47); Hemoglobin 14.3 g/dL (12.0-16.0); Immature Granulocytes # (auto) 0.01 K/uL (0.00-0.02); Immature Granulocytes % (auto) 0.2 %; Lymphocytes # (auto) 0.26 K/uL (1.2-3.4); Lymphocytes % (auto) 4.6 %; Mean Corpuscular Hemoglobin 29.5 pg (25-34); Mean Corpuscular Hgb Conc 35.5 g/dL (32-36); Mean Corpuscular Volume 83.3 fL (80-100); Mean Platelet Volume 10.2 fL (7.4-10.4); Monocytes # (auto) 0.06 K/uL (0.11-0.59); Monocytes % (auto) 1.1 %; Neutrophils # (auto) 5.32 K/uL (1.4-6.5); Neutrophils % (auto) 94.1 %; Platelet Count 178 K/uL (130-400); RDW Coefficient of Variation 12.7 % (11.5-14.5); RDW Standard Deviation 38.2 fL (36.4-46.3); Red Blood Count 4.84 M/uL (4.2-5.4); White Blood Count 5.65 K/uL (4.8-10.8)
[2019-07-12 06:29] LABS: Albumin Level 3.1 gm/dl (3.4-5.0); BUN Creatinine Ratio 14.7 (10-20); Calcium 8.4 mg/dl (8.5-10.1); Creatinine Clr Calc Pharmacy 105.9 ml/min; Est GFR (African American) 112.9; Est GFR (Non-African American) 97.4
[2019-07-12 06:32] LABS: Bilirubin,Total 0.3 mg/dl (0.2-1); Globulin 3.2 gm/dl (2.5-4.0); Total Protein 6.3 gm/dl (6.4-8.2)
[2019-07-12] MEDS: ONDANSETRON INJ 2 MG/ML 2 ML VIAL IV PRN (08:16)
[2019-07-12] MEDS: PANTOprazole 40 MG TAB PO SCH (08:17)
[2019-07-12] MEDS: BETAMETHASONE DIP AUG 0.05% OINT 15 GM TUBE TOP SCH (08:17)
[2019-07-12] MEDS: TOPIRAMATE 25 MG TAB PO SCH (08:17)
[2019-07-12] MEDS: VALACYCLOVIR HCL 500 MG TABLET PO SCH (08:17)
[2019-07-12] MEDS: SODIUM CHLORIDE 0.9% 1000ML 1,000 ML IV SCH (11:05)
--- NOTE | 2019-07-12 11:13 | Neurology Progress Note ---
Date of Service July 12, 2019 Assessment & Plan (1) Chronic migraine: Status migrainosus/chronic migraine. Considerably improved with current treatment. Going forward, I would like her to continue with topiramate 25 mg twice daily. We may increase the dosage of topiramate to 50 mg twice daily over the next 1 to 2 weeks. Potential side effects of topiramate including paresthesias, nephrolithiasis, and weight loss were discussed directly with the patient. She does not have a history of kidney stones. She will still need an outpatient rheumatology assessment as described previously given her significantly elevated SHANTA. However, to what extent an underlying rheumatological issue may or may not have contributed to her current refractory headache cannot likey be known with certainty. This patient may follow-up with me in the outpatient neurology clinic for ongoing management of what appears to have been a refractory migraine episode. Subjective Follow-up for headache/status migrainosus The patient reports that her headache is considerably improved this morning. She has received additional IV corticosteroids, methylprednisolone 250 mg as well as a 500 mg bolus of IV valproic acid. Topiramate 25 mg twice daily has al so been started. She denies any focal neurological symptoms such as vision loss, diplopia, dysarthria, focal weakness, sensory loss, or problems with balance or coordination. She has had an extensive evaluation in the context of this current hospitalization including MRI of the brain, MRV of the head, and lumbar puncture. 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 She does not have a history of epilepsy or seizure disorder. These imaging findings do not explain her headache. Her MRV was unremarkable. CSF analysis and opening pressure were unremarkable as well. Results & Data Vital Signs (Past 12 Hours) Vital Signs Temp Pulse Resp BP Pulse Ox 07/12/19 07:54 36.9 C 69 18 97/61 L 97 07/11/19 23:30 37 C 83 16 103/67 97 PG Care Time/CCT Total # of Minutes Spent Total Time Spent with Patient: Total time spent is greater than 50% in coordination of care (as documented) at patient's floor/unit and/or counseling patient: 15 minutes
[2019-07-14 08:19] LABS: HSV Type 1 DNA Not Detected (Not Detected); HSV Type 1&2 DNA Source CSF; HSV Type 2 DNA Not Detected (Not Detected); Herpes Virus 6 (DNA) Not Detected (Not Detected); Herpes Virus 6 (DNA) Source CSF; Lyme DNA PCR CSF or Synovial Not detected (Not Detected); Lyme DNA Source CSF; Lyme IgG CSF NO BANDS DETECTED; Lyme IgM CSF NO BANDS DETECTED
--- NOTE | 2019-07-16 23:32 | Discharge Summary ---
Date of Service date of admission - July 11, 2019 date of discharge - July 12, 2019 Admission HPI Per Admitting Provider Cortney White is a 28yo C female presenting with headache. Patient reports no prior history of headache until 2 months ago when she developed a daily headache. Headache has been present every day for the last two months, constant, lasting all day. Occasionally wakes her from sleep. Pain is 10/10 at its worst, bifrontal, pounding/aching in quality. She has used Tylenol/Advil/Heat and ice with no relief. She has associated photophobia and phonophobia, occasional blurry vision and double vision and flashing lights in her visual field. Dizziness, nausea and vomiting. She reports that the headache has become progressively worse over the last two months. She has also been having more nausea and vomiting. Patient follows with Dr. Mendoza and Dr. Perez in the clinic. She has a complicated history of alopecia, skin rashes which have since resolved, leg swelling. Also with positive SHANTA on two separate occasions - 1:640 speckled and 1:640 nuclear. Additional workup included negative HIV, CMV and RPR. She was thought to possibly have lupus with cerebritis as etiology of her headaches. She was started on Prednisone 40mg po daily. She reports worsening symptoms with taking the Prednisone. She denies history of trauma or concussion. 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 Denies fevers/chills. Headache is not made worse by straining or bending down. No seizures. No focal neurologic deficits. No recent illness or sick contacts. No history of tick or mosquito bites. She was experiencing episodes of epistaxis - was evaluated by ENT today and found to have nasal polyps. She is being scheduled for elective removal. Additionally, patient denies chest pain/palpitations/SOB/constipation/dysuria. Upon arrival to the ER this evening she was found to be afebrile, hemodynamically stable. In mild distress secondary to pain. She was administered Tylenol, Dexamethasone, Benadryl, Phenergan and NSS. LP was performed by Dr. Long with patient in the lateral recumbent position. He reported normal opening pressure, spinal fluid clear. Patient with no additional complaints at this time. She states that her headache is gone since the spinal tap. ER Course: Ofirmev 1gm, Dexamethasone 10mg, Benadryl 25mg, Phenergan, NSS Principal Diagnosis status migrainosus - resolved Discharge Exam Constitutional well developed, well nourished and + morbidly obese; no acute distress Eyes PERRL ENMT external ear and nose normal, oropharynx normal Respiratory normal respiratory effort, lungs clear to auscultation Cardiovascular RRR, no murmur, no edema Heart Sounds: normal S1 and normal S2 Vessels: posterior tibial pulses present and dorsalis pedis pulses present Gastrointestinal (Abdomen) normal bowel sounds, soft, nontender, no hepatosplenomegaly Neurologic deep tendon reflexes 2+ bilaterally and moves all extremities; no focal motor deficits Psychiatric A+Ox3, euthymic affect Discharge Data Allergies Allergy/AdvReac Type Severity Reaction Status Date / Time clindamycin Allergy Intermediate Hives Verified 07/14/19 13:04 Consultations [facility] - Gene uSarez MD Procedures Performed lumbar puncture - normal opening pressure, normal cell counts Ordered Studies 1. CT head - Impression: 1. No acute intracranial abnormality. 2. Possible 8 mm subependymal nodule within the atrium of the left lateral ventricle. 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 3. Linear CSF density within the left occipital lobe which could represent a small focus of encephalomalacia from an old insult or migration anomaly. 4. Follow-up brain MRI recommended for further evaluation of the suspected congenital/developmental abnormalities. 2. RLE venous doppler - neg for DVT. 3. MRI brain - IMPRESSION: 1. 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 2. No evidence of acute or subacute infarction 3. There are no lesions suspicious for neoplasm. 4. MRV head - negative/normal. Hospital Course (1) Status migrainosus: After consultation with [facility] it was felt that the patient's headaches were due to status migrainosus. Pseudotumor cerebri was NOT felt to be the cause of her headaches. Lumbar puncture results were NOT consistent with infectious process. Despite a history of positive SHANTA it was NOT felt that she had a vasculitis process. The congenital anatomic variants seen on MRI brain were NOT felt to be contributing to her headaches. Dr Suarez from neurology recommended IV steroids and a load of IV depakote while hospitalized to abort her pain. The pain indeed improved with these measures and on hospital day #2 she was feeling significantly better. At discharge the following were recommended - * topamax 25mg BID for migraine prophylaxis; side effects were discussed * medrol dose pack x 1 * use of maxalt-TOY ASSEMBLER to be used on prn basis for abortive treatment * zofran ODT prn to be used for migraine-associated nausea * a headache diary to pinpoint any dietary contributors, if any The patient was advised to follow-up with Dr Suarez from [facility] shortly after discharge. Total Time Total Time Spent Total Time Spent (In Minutes): 35 Total Time Includes: Examination of the Patient, Discharge Planning and Medication Reconciliation Discharge Plan Discharge Items Patient Disposition: Home - Self-Care Reason For Visit: HEADACHE Discharge Diagnosis: severe, chronic headaches - likely migraines - improved Goals: 1. treat headache pain 2. find out what is causing the headache Activity: Per Instructions section Exercise Comment: gradually increase activities over the next 3-5 days Driving/Machine Use: Resume 1 day after discharge Non-emergency contact: Primary Care Provider and Neurologist Call non-emergency contact if: you have any medication questions, your symptoms worsen, your pain is not controlled, your pain is worsening and you have a fever Follow-up/Referrals: Gene Suarez MD [Physician] - 07/20/19 9:45 am (Please, follow up at [facility] Office with Dr. Joel Suarez's associate, Celine Mcfadden PA-C, on July 20 at 9:45 am. *The office is located at [address] [place] [address] in [place]. If you need to change this appointment, call the office at [phone].) Hector Mendoza MD [Primary Care Provider] - 07/17/19 12:50 pm (Please, follow up at Dr. Mendoza' office with his associate, Dr. Velasquez, on WednesdayJuly 17 at 12:50 pm. *If you need to change this appointment, call their office at [phone].) Diet: Regular Addtl Attending Provider Instructions: You were treated for acute on chronic headaches. You underwent an extensive work-up for these including lumbar puncture, MRI brain, various lab studies, etc. All studies/labs were normal (MRI brain showed some normal variants which you were likely born with but these are not causing your symptoms). Your lumbar puncture was normal. The neurologist saw you and diagnosed you with chronic migraines. You received various IV medications to break the headache. The headache indeed did improve while here. Recommendations -- 1. keep a headache diary. When you get your next headache try to remember (and write down) what you had eaten/drank, how your sleep was that previous night, etc. You may find certain foods could be triggering your headaches. 2. take topamax (topiramate) 25mg twice a day every day to help prevent the headaches. Side effects- weight loss, kidney stone development, sleepiness. 3. take a "medrol dose stefano" (steroid pack). Follow the instructions on the package. Start this TODAY. Hopefully the additional steroids will get the headaches to resolve fully in the next couple of days. 4. if you have a severe migraine at any point moving forward please do the following - * take a zofran tablet (ondansetron) under the tongue - especially if you have nausea * take a rizatriptan under the tongue * lie down in a dark & quiet room and take a nap * hopefully you will wake up with the headache gone 5. follow-up -- see separate section 6. return to [facility] if -- * you have fevers over 100.5 degrees * over the next few days your headaches worsen with sitting up or standing (this could be a sign of something called a "spinal headache" which can result from a lumbar puncture) * you have a severe migraine that won't resolve with your medications at home * any other concerns Pending Studies at Discharge: Yes Studies:: various cultures from the spinal tap but anticipate all studies will be negative/normal Stand-Alone Forms: My [facility], Work/School Release (Inpt), Smoking Cessation Medications and DC Order Prescriptions: New topiramate 25 mg Tablet 25 mg PO BID Qty: 60 RF: 2 ondansetron 4 mg tablet,disintegrating 4 mg PO Q6H PRN (Reason: nausea and vomiting associated with headache) Qty: 14 RF: 0 Continued valacyclovir 1 gram tablet 1,000 mg PO Q12H RF: 0 pantoprazole 40 mg tablet,delayed release (DR/EC) 40 mg PO QAM RF: 0 cetirizine 10 mg Tablet 10 mg PO DAILY PRN (Reason: Allergy Symptoms) RF: 0 hydroxyzine HCl 25 mg tablet 25 mg PO BID PRN (Reason: Itching) RF: 0 betamethasone dipropionate 0.05 % ointment 1 applic topical BID RF: 0 Discontinued prednisone 20 mg tablet 40 mg PO DAILY RF: 0 No Action rizatriptan [Maxalt-TOY ASSEMBLER] 10 mg tablet,disintegrating 10 mg PO DIRECTED PRN (Reason: Migraine Headache) RF: 0 Discharge Orders: Discharge Order (Routine); Ordered 07/12/19 Ordered By: Hector Love/Other Patient Handouts: Migraine Headache Triggers Prevent, Migraine Meds Lifestyle Change Admission Data Admit Date/Time: 07/11/19 02:22 Attending Provider: Hector Aponte Admit Provider: Sudha Perez Primary Care Provider: Hector Mendoza Other Providers: Sudha Perez ; Gene Suarez Other Interventions: Discharge Summary Assessment (RN) Last Done: 07/12/19 12:53 DC Date/Time DO NOT enter until pt leaves facility: 07/12/19 14:27
== END 2019-07-12 14:27 | disposition home or self-care (01) ==
LOC: ED 18:31 → 3N 18:31 → SUATTDRO 07-11 02:22 → 3N 07-11 03:20